=== PATIENT | female | born 1985 | race Native Hawaiian/Other Pacific Islander ===

== ENCOUNTER 2018-02-20 02:43 | Inpatient (IN) | payer OTHER ==
[2018-02-20] MEDS ORDERED: LACTATED RINGERS 1,000 ML IV ONE (04:49)
[2018-02-20 05:15] LABS: Hematocrit 38.6 % (30.3-42.9); Hemoglobin 13.3 gm/dl (10.1-14.3); Mean Corpuscular HGB Conc 35 % (30-34); Mean Corpuscular Hemoglobin 33 pg (28-32); Mean Corpuscular Volume 95 fl (79-97); Platelet Count 153 K/mm3 (140-440); Red Blood Count 4.06 M/mm3 (3.65-5.03); Red Cell Distribution Width 13.4 % (13.2-15.2)
[2018-02-20] MEDS ORDERED: STADOL IV PRN (06:46)
[2018-02-20] MEDS ORDERED: XYLOCAINE 2% INFILTRATI ONE (06:46)
[2018-02-20] MEDS ORDERED: NARCAN 0.4 MG/1 ML IV PRN (06:46)
[2018-02-20] MEDS ORDERED: BRETHINE SUB-Q PRN (06:46)
[2018-02-20] MEDS ORDERED: ZOFRAN IV PRN ×2 (06:46→09:00)
--- NOTE | 2018-02-20 06:55 | History and Physical Report ---
History of Present Illness Date of admission: 02/20/18 04:52 Chief complaint: uterine contractions History of present illness: 32yo at 40 2/7wks admitted for labor. She has had uncomplicated course with care at [facility]. She is GBS negative. Past History Past Surgical History: no surgical history Social history: - Obstetrical History Expected Date of Delivery: 02/18/18 Actual Gestation: 40 Week(s) 2 Day(s) : 4 Medications and Allergies Allergies Allergy/AdvReac Type Severity Reaction Status Date / Time No Known Allergies Allergy Unverified 02/09/16 05:38 Home Medications Medication Instructions Recorded Confirmed Last Taken Type No Known Home Medications [No 02/09/16 02/09/16 Unknown History Reported Home Medications] Active Meds: Active Medications Butorphanol Tartrate (Stadol) 1 mg IV Q2H PRN PRN Reason: Pain, Moderate (4-6) Ephedrine Sulfate (Ephedrine Sulfate) 10 mg IV Q2M PRN PRN Reason: Hypotension Lactated Ringer's (Lactated Ringers) 1,000 mls @ 125 mls/hr IV DIRECT CORIE Oxytocin/Sodium Chloride (Pitocin/Ns 20 Unit/1000ml Drip) 20 units in 1,000 mls @ 125 mls/hr IV DIRECT CORIE Lidocaine (Xylocaine 2%) 20 ml INFILTRATI ONCE ONE Stop: 02/20/18 06:47 Mineral Oil (Mineral Oil) 30 ml PO QHS PRN PRN Reason: Constipation Naloxone HCl (Narcan 0.4 Mg/1 Ml) 0.1 mg IV Q2MIN PRN PRN Reason: Res Rate </= 8 or 02 SAT < 92% Ondansetron HCl (Zofran) 4 mg IV Q8H PRN PRN Reason: Nausea And Vomiting Terbutaline Sulfate (Brethine) 0.25 mg SUB-Q ONCE PRN PRN Reason: Hyperstimulation/Hypertonicity - Vital Signs Vital signs: Vital Signs Pulse BP 99 H 112/71 02/20/18 02:58 02/20/18 02:58 Temp Pulse Resp BP Pulse Ox 98.5 F 99 H 18 112/71 02/20/18 03:00 02/20/18 03:00 02/20/18 03:00 02/20/18 03:00 - Obstetrical FHR: category 1 Cervical Dilatation: 6 Cervical Effacement Percentage: 80 station: -1 Uterine Contraction Pattern: Regular Results Result Diagrams: 02/20/18 03:45 Abnormal lab results 02/20/18 Range/Units 03:45 MCH 33 H (28-32) pg MCHC 35 H (30-34) % All other labs normal. Assessment and Plan - Patient Problems (1) Active labor Current Visit: Yes Status: Acute Plan to address problem: Routine labs IVF GBS negative Anticipate Spontaneous vaginal delivery. (2) 39 weeks gestation of Current Visit: No Status: Acute
[2018-02-20] MEDS ORDERED: PITOCin/NS 20 UNIT/1000ML DRIP 20 UNITS/1,000 ML BAG IV SCH (07:00)
[2018-02-20] MEDS ORDERED: LACTATED RINGERS 1,000 ML IV SCH (07:00)
--- NOTE | 2018-02-20 07:35 | Event Note ---
AROM @0710 clear Category I FHT
--- NOTE | 2018-02-20 08:35 | Procedure Note ---
OB Delivery Note - Delivery Date of Delivery: 02/20/18 Surgeon: RAKESH LOCO Estimated blood loss: other (250cc) - Vaginal Delivery position: OA Intrapartum events: none Delivery augmentation: rupture of membranes Delivery monitor: external FHT Route of delivery: Delivery placenta: spontaneous Delivery cord: nuchal cord Delivery laceration: none Anesthesia: none Delivery comments: AROM ~710am. Delivery 8am with one push, head delivered OA, nuchal cord easily reduced, body delivered. Infant vigorous and good cry. Terminal meconium noted. Vaginal exam no tears. Pitocin administered. Fundal exam - uterus firm and below umbilicus. No bleeding upon exit from room. - B at 1 minute: 9 at 5 minutes: 9 (8lb 2 oz) Gender: Female
[2018-02-20] MEDS ORDERED: TYLENOL PO PRN (09:00)
[2018-02-20] MEDS ORDERED: LANSINOH TP PRN (09:00)
[2018-02-20] MEDS ORDERED: SODIUM CHLORIDE FLUSH SYRINGE 10 ML IV PRN (09:00)
[2018-02-20] MEDS ORDERED: TUCKS PAD TP PRN (09:00)
[2018-02-20] MEDS ORDERED: PHENERGAN PO PRN (09:00)
[2018-02-20] MEDS: MOTRIN PO SCH ×3 (09:44→23:03)
[2018-02-20] MEDS ORDERED: DULCOLAX PR PRN (10:00)
[2018-02-20] MEDS: METHERGINE PO SCH ×3 (10:34→22:46)
[2018-02-20] MEDS ORDERED: NORCO 5/325 PO PRN (12:05)
[2018-02-20 21:54] LABS: Hematocrit 34.8 % (30.3-42.9)
[2018-02-20] MEDS ORDERED: MINERAL OIL PO PRN (22:00)
[2018-02-20] MEDS ORDERED: MILK OF MAGNESIA PO PRN (22:00)
[2018-02-20] MEDS: COLACE PO SCH (22:46)
[2018-02-21] MEDS: METHERGINE PO SCH (05:13)
[2018-02-21] MEDS: MOTRIN PO SCH ×3 (05:13→16:36)
[2018-02-21] MEDS: BENADRYL PO PRN (05:25)
[2018-02-21] MEDS ORDERED: BOOSTRIX IM ONE (06:00)
[2018-02-21] MEDS: COLACE PO SCH (10:57)
[2018-02-21] MEDS: FEOSOL PO SCH (10:57)
--- NOTE | 2018-02-21 13:45 | Progress Note ---
Assessment and Plan A: day 1 S/P . P: Encouraged ambulation; continue iron supplementation. Anticipate discharge tomorrow. Subjective - Subjective Date of service: 02/21/18 Principal diagnosis: day 1 S/P Interval history: day 1 S/P . Doing well. Patient reports small amount of lochia. She is voiding without difficulty and ambulating well. She is tolerating a regular diet without nausea or vomiting. Patient denies headache, chest pain, cough, shortness of breath, abdominal pain , leg pain, heavy bleeding, or any other symptoms. Patient reports: appetite normal, voiding normally, pain well controlled, flatus , ambulating normally [place]: doing well Objective - Vital Signs Latest vital signs: Vital Signs Temp Pulse Resp BP BP Pulse Ox 02/21/18 07:40 98.3 F 64 18 105/59 02/21/18 01:01 98.4 F 67 18 103/64 94 02/20/18 20:29 97.9 F 78 20 113/70 92 02/20/18 15:08 98.8 F 65 18 104/65 Intake and Output 02/20/18 02/21/18 02/21/18 23:59 07:59 15:59 Intake Total 240 120 Output Total 250 Balance -10 120 Intake: Oral 120 Intake, Free Water 240 Output: Urine 250 Void 250 Other: Total, Intake Amount 120 Total, Output Amount 250 # Voids Void 2 1 - Exam Cardiovascular: Present: Regular rate, Normal S1, Normal S2 Lungs: Present: Clear to auscultation Abdomen: Present: normal appearance, soft, normal bowel sounds. Absent: distention, tenderness, guarding, rigidity Uterus: Present: normal, firm, fundal height below umbilicus. Absent: bogginess , tenderness Extremities: Present: normal. Absent: tenderness, edema
[2018-02-21 16:08] LABS: Hemoglobin 11.9 gm/dl (10.1-14.3)
[2018-02-22] MEDS: MOTRIN PO SCH ×3 (00:39→12:40)
[2018-02-22] MEDS: BENADRYL PO PRN (00:43)
[2018-02-22] MEDS: COLACE PO SCH (00:43)
[2018-02-22] MEDS: FEOSOL PO SCH (12:40)
--- NOTE | 2018-02-22 16:43 | Progress Note ---
Assessment and Plan A: day 2 S/P . P: Discharge patient home today. Discussed with patient discharge instructions and warning signs in detail. Advised patient to avoid IC and avoid lifting and heavy housework for 6 weeks. Advised pt. to follow up OB clinic in 6 weeks. Pt. voiced understanding of all instructions. Subjective - Subjective Date of service: 02/22/18 Principal diagnosis: day 2 S/P Interval history: day 2 S/P . Patient desires discharge today. Patient is . Doing well. Patient reports small amount of lochia. She is voiding without difficulty and ambulating well. She is tolerating a regular diet without nausea or vomiting. Patient denies headache, chest pain, cough, dizziness, shortness of breath, abdominal pain, leg pain, heavy bleeding, or any other symptoms. Patient is undecided what she wants to use for control. Patient reports: appetite normal, voiding normally, pain well controlled, flatus , ambulating normally [place]: doing well Objective - Vital Signs Latest vital signs: Vital Signs Temp Pulse Resp BP BP Pulse Ox 02/22/18 08:00 97.8 F 66 93/55 98 02/22/18 01:03 98.0 F 63 18 93/60 96 Intake and Output 02/22/18 02/22/18 02/22/18 07:59 15:59 23:59 Intake Total 240 Balance 240 Intake: Intake, Free Water 240 Other: # Voids Void 1 - Exam Cardiovascular: Present: Regular rate, Normal S1, Normal S2, No murmurs Lungs: Present: Clear to auscultation Abdomen: Present: normal appearance, soft, normal bowel sounds. Absent: distention, tenderness, guarding, rigidity Uterus: Present: normal, firm, fundal height below umbilicus. Absent: bogginess , tenderness Extremities: Present: normal. Absent: tenderness, edema
--- NOTE | 2018-02-22 16:45 | Discharge Summary ---
Providers - Providers Date of Admission: 02/20/18 04:52 Date of discharge: 02/22/18 Attending physician: JANE RAMIREZ MD None Primary care physician: JANE RAMIREZ MD Hospitalization Reason for admission: active labor Delivery: Episiotomy: none Laceration: 1st degree Other procedures: none complications: none Discharge diagnosis: IUP at term delivered [place] baby: female Pertinent studies: Labs Hospital course: Normal hospital course. Condition at discharge: Good Disposition: DC-01 TO HOME OR SELFCARE - Discharge Diagnoses (1) Term delivered Status: Acute Plan - Provider Discharge Summary Activity: routine, no sex for 6 weeks, no heavy lifting 4 weeks, no strenuous exercise Diet: routine Instructions: routine Additional instructions: Call your doctor immediately for: * Fever > 100.5 * Heavy vaginal bleeding ( >1 pad per hour) * Severe persistent headache * Shortness of breath * Reddened, hot, painful area to leg or breast - Follow up plan Follow up: JANE RAMIREZ MD [Primary Care Provider] - 6 Weeks
[2018-02-22 20:31] VITALS: BP 111/68
== END 2018-02-22 17:25 | disposition home or self-care (01) | DRG 775 ==
LOC: TRG 02:43 → LD 04:52 → OB 11:43
PROVIDERS: ADMIT Obstetrics & Gynecology; ATTEND Obstetrics & Gynecology
PROC: 10E0XZZ Delivery of Products of Conception, External Approach (ICD-10-PCS; principal; 2018-02-20)
PROC: 10907ZC Drainage of Amniotic Fluid, Therapeutic from Products of Conception, Via Natural or Artificial Opening (ICD-10-PCS; 2018-02-20)
PROC: 3E0234Z Introduction of Serum, Toxoid and Vaccine into Muscle, Percutaneous Approach (ICD-10-PCS; 2018-02-21)
DX: O69.81X0 Labor and delivery complicated by cord around neck, without compression, not applicable or unspecified (principal); O77.0 Labor and delivery complicated by meconium in amniotic fluid; O70.0 First degree perineal laceration during delivery; Z3A.40 40 weeks gestation of pregnancy; Z37.0 Single live birth; Z23 Encounter for immunization
CPT/HCPCS: 36415; 85014; 85018; 85027; 86592; 86850; 86900; 86901; 90471; 90715; J2590; J7120